=== PATIENT | male | born 1960 | race Caucasian/White ===

== ENCOUNTER 2017-01-12 14:11 | Emergency (ER) | payer OTHER ==
--- NOTE | 2017-01-12 14:18 | ER Document Report ---
ED Medical Screen (RME) - General Stated Complaint: ELBOW PROBLEM Mode of Arrival: Ambulatory Information source: Patient Notes: Patient hit right elbow 2 weeks ago. Elbow started to swell the following morning. No fever. I have greeted and performed a rapid initial assessment of this patient. A comprehensive ED assessment and evaluation of the patient, analysis of test results and completion of the medical decision making process will be conducted by additional ED providers. Physical Exam - Extremities General upper extremity: Tender - Right elbow
--- NOTE | 2017-01-12 16:52 | ER Document Report ---
Doctor's Note Notes: 01/12/17 16:49 PROCEEDURE: The right proximal forearm distal to the olecranon was prepped with Betadine and then wiped clean with alcohol wipes. An 18-gauge needle was introduced into the fluid pocket which was enlarged by palpating just above the olecranon. 20 mL's of yellowish straw-colored fluid was aspirated. The syringe was removed from the needle to enter the syringe and reattached to the needle, 5 more mL's of fluid was aspirated but this had some blood in it, probably related to manipulating the needle trying to get the syringe off and back on again. (MYA CAVAZOS)
--- NOTE | 2017-01-12 17:24 | ER Document Report ---
HPI - HPI Patient complains to provider of: RIGHT ELBOW SWELLING Onset: Other - TWO WEEKS Onset/Duration: Gradual Quality of pain: Throbbing Severity: Mild Pain Level: 2 Context: Patient states he hit his right elbow about 2 weeks ago on a ladder at work. Swelling has gotten gradually worse. Tried to take a needle that he put in hydrogen peroxide and open the area. No drainage was produced. Associated Symptoms: None Exacerbated by: Movement Relieved by: Denies Similar symptoms previously: Yes Recently seen / treated by doctor: No - ROS ROS below otherwise negative: Yes Systems Reviewed and Negative: Yes All other systems reviewed and negative - CONSTITUTIONAL Constitutional: DENIES: Fever - EENT EENT: DENIES: Congestion - NEURO Neurology: DENIES: Headache - CARDIOVASCULAR Cardiovascular: DENIES: Chest pain - RESPIRATORY Respiratory: DENIES: Trouble Breathing - GASTROINTESTINAL Gastrointestinal: DENIES: Abdominal Pain - URINARY Urinary: DENIES: Dysuria - MUSCULOSKELETAL Musculoskeletal: REPORTS: Extremity pain, Swelling - right elbow - DERM Skin Color: Normal Skin Problems: None <GINO LI - Last Filed: 01/12/17 17:18> Past Medical History - General Information source: Patient - Social History Smoking Status: Current Every Day Smoker Chew tobacco use (# tins/day): No Frequency of alcohol use: None Drug Abuse: Marijuana Lives with: Spouse/Significant other Family History: Reviewed & Not Pertinent Patient has suicidal ideation: No Patient has homicidal ideation: No GI Medical History: Reports: Hx Hepatitis - B Past Surgical History: Reports: Hx Appendectomy, Hx Orthopedic Surgery, Hx Testicular Surgery <GINO LI - Last Filed: 01/12/17 17:18> Vertical Provider Document - CONSTITUTIONAL Agree With Documented VS: Yes Exam Limitations: No Limitations General Appearance: WD/WN, No Apparent Distress - INFECTION CONTROL TRAVEL OUTSIDE OF THE [place] IN LAST 30 DAYS: No - HEENT HEENT: Atraumatic, Normocephalic - RESPIRATORY Respiratory: Breath Sounds Normal, No Respiratory Distress O2 Sat by Pulse Oximetry: 97 - CARDIOVASCULAR Cardiovascular: Regular Rate, Regular Rhythm - GI/ABDOMEN Gastrointestinal: Abdomen Soft, Abdomen Non-Tender - MUSCULOSKELETAL/EXTREMETIES Musculoskeletal/Extremeties: MAEW, FROM, Tender, Edema - RIGHT ELBOW - NEURO Level of Consciousness: Awake, Alert, Appropriate - DERM Integumentary: Warm, Dry <GINO LI - Last Filed: 01/12/17 17:18> Course - Vital Signs Vital signs: Temp Pulse Resp BP Pulse Ox 97.9 F 62 18 129/85 H 97 01/12/17 14:19 01/12/17 14:19 01/12/17 14:19 01/12/17 14:19 01/12/17 14:19 <GUILLERMOGINO - Last Filed: 01/12/17 17:18> - Vital Signs Vital signs: Temp Pulse Resp BP Pulse Ox 97.9 F 62 18 129/85 H 97 01/12/17 14:19 01/12/17 14:19 01/12/17 14:19 01/12/17 14:19 01/12/17 17:24 <MYA CAVAZOS - Last Filed: 01/12/17 18:26> Discharge <GUILLERMOGINOE - Last Filed: 01/12/17 17:18> <MYA CAVAZOS - Last Filed: 01/12/17 18:26> - Discharge Clinical Impression: Olecranon bursitis of right elbow Condition: Stable Disposition: HOME, SELF-CARE Additional Instructions: KEEP WOUND CLEAN AND DRY. KEEP THE LILIANA-WRAP ON FOR COMPRESSION. MEDS PRESCRIBED. TAKE MOTRIN EVERY RIGHT HOURS. FOLLOW UP WITH DR. CORDOVA AT [facility] SATURDAY MORNING. RETURN TO THE EMERGENCY ROOM IF ANY NEW OR WORSENING SYMPTOMS. Prescriptions: Cephalexin [Cephalexin 500 MG Capsule] 1 cap PO QID #28 capsule Referrals: [facility] [Provider Group] - 01/14/17
[2017-01-12 17:31] LABS: FLUID APPEARANCE CLOUDY; FLUID TYPE SYNOVIAL
[2017-01-12 17:40] LABS: FLUID RBC SIDE 1 94; FLUID RBC SIDE 2 102
[2017-01-12 17:41] LABS: FLUID RBC DILUENT USED SALINE; FLUID RBC DILUTION FACTOR 20; TOTAL RBC SQUARES COUNTED FLD 225
[2017-01-12 18:37] VITALS: BP 150/96
== END 2017-01-12 18:35 | disposition home or self-care (01) ==
LOC: ER 14:11
PROC: 0R9L3ZZ Drainage of Right Elbow Joint, Percutaneous Approach (ICD-10-PCS; principal; 2017-01-12)
DX: M70.21 Olecranon bursitis, right elbow (principal); M25.421 Effusion, right elbow; F17.200 Nicotine dependence, unspecified, uncomplicated; Z86.19 Personal history of other infectious and parasitic diseases
CPT/HCPCS: 87070; 87075; 87205; 89050; 99283

== ENCOUNTER → 2017-02-18 | Outpatient (CLI) | payer OTHER ==
[2017-02-18 08:48] LABS: BLOOD UREA NITROGEN 14 mg/dL (7-20); CREATININE RESULT 0.69 mg/dL (0.52-1.25); URIC ACID 4.6 mg/dL (3.5-8.5)
== END ==
LOC: OD 07:20
PROVIDERS: ATTEND Orthopaedic Surgery
DX: M25.421 Effusion, right elbow (principal)
CPT/HCPCS: 36415; 82565; 84520; 84550